=== PATIENT | male | born 1980 | race Caucasian/White ===

== ENCOUNTER 2016-09-28 08:18 | Emergency (ER) | payer BC ==
[~2016-09-28] VITALS: Ht 180.3 cm; Wt 63.6 kg
[~2016-09-28 08:18] MED LIST: CELEXA 20MG20 MG/TAB; CEPHALEXIN500 M1 PO; CIPRO500 MG PO; DOXYCYCLINE 10100 MG PO; FLEXERIL10 MG PO; FLOMAX 0.40.4 MG/CAP PO; LORTAB 5/500 501 TAB PO; NAPROSYN PO; NAPROSYN500 MG PO; NO HOME MEDICATIONS; NORCO 325 MG-51 TAB PO; PERCOCET 325 MG1 TA2 PO; PROMETHAZINE12.5 M5 PO; XANAX 1MG1 MG; ZOFRAN 4MG T4 MG/TAB PO
[2016-09-28 08:25] VITALS: BP 144/89; PULSE 105; TEMP 97.7
[2016-09-28] MEDS ORDERED: FLEXERIL 1010 MG/TAB PO (09:55)
[2016-09-28] MEDS ORDERED: NORCO 325 MG-51 TAB PO (09:55)
== END 2016-09-28 10:25 | disposition home or self-care (01) ==
LOC: COL.ER 08:18
DX: M54.31 Sciatica, right side (principal); F17.210 Nicotine dependence, cigarettes, uncomplicated
CPT/HCPCS: J1885; J2360

== ENCOUNTER 2017-09-07 08:43 | Emergency (ER) | payer BC ==
[~2017-09-07] VITALS: Ht 177.8 cm; Wt 63.6 kg
[~2017-09-07 08:43] MED LIST changes: +FLEXERIL 1010 MG/TAB PO
[2017-09-07 08:45] VITALS: BP 146/74; TEMP 97.1
[2017-09-07] MEDS ORDERED: ADVIL200 MG PO (08:57)
[2017-09-07] MEDS ORDERED: FLEXERIL 1010 MG/TAB PO (09:03)
[2017-09-07] MEDS ORDERED: PREDNISONE20 MG PO (10:08)
[2017-09-07 10:22] VITALS: PULSE 87
== END 2017-09-07 10:20 | disposition home or self-care (01) ==
LOC: COL.ER 08:43
DX: M54.17 Radiculopathy, lumbosacral region (principal); F17.210 Nicotine dependence, cigarettes, uncomplicated
CPT/HCPCS: J2360

== ENCOUNTER → 2017-10-25 | Outpatient (CLI) | payer BC ==
[~2017-10-25] MED LIST changes: +ADVIL200 MG PO; +PREDNISONE20 MG PO
== END ==
LOC: MHCPAIN 08:27
DX: G89.29 Other chronic pain (principal); M47.817 Spondylosis without myelopathy or radiculopathy, lumbosacral region; M54.16 Radiculopathy, lumbar region; M53.3 Sacrococcygeal disorders, not elsewhere classified
CPT/HCPCS: G0463

== ENCOUNTER 2018-06-05 09:54 | Emergency (ER) | payer BC ==
[~2018-06-05] VITALS: Ht 177.8 cm; Wt 56.4 kg
[2018-06-05 10:04] VITALS: BP 137/90; TEMP 98.5
[2018-06-05] MEDS ORDERED: INDOCIN50 MG PO (10:09)
[2018-06-05 10:39] LABS: BASO # 0.1 (0.0-0.2); BASO % 0.6 % (0.0-2.0); EOS # 0.1 (0.0-0.7); EOS % 0.7 % (0-4.0); GRAN # 4.8 (1.4-6.5); LYMPH # 2.9 (1.2-3.4); LYMPH % 34.9 % (20.0-51.0); MEAN CELL VOLUME 89 fl (80.0-100.0); MEAN CORPUSCULAR HEMOGLOBIN 32 pg (27.0-31.0); MEAN CORPUSCULAR HGB CONC 36 g/dl (33.0-37.0); MEAN PLATELET VOLUME 10.1 fl (7.4-10.4); MONO # 0.6 (0.1-0.6); MONO % 6.6 % (1.7-9.3); PLATELET COUNT 252 K/mm3 (130-400); REDCELL DISTRIBUTION WIDTH-CV 11.4 % (11.5-14.5)
[2018-06-05 10:45] LABS: ALBUMIN 4.6 gm/dL (3.5-5.0); BILIRUBIN,TOTAL 0.6 mg/dL (0.0-1.0); CALCIUM 9.9 mg/dL (8.4-10.2); CREATININE, serum 0.79 mg/dL (0.66-1.25); TOTAL PROTEIN 7.6 gm/dL (6.4-8.2)
[2018-06-05 10:53] LABS: COLLECTION METHOD CLEAN CATCH
[2018-06-05 11:04] LABS: MUCOUS Present /lpf; PH 6 (5-8); SQUAMOUS EPITHELIAL None Seen /hpf; URINE APPEARANCE Clear; URINE BACTERIA None Seen /hpf; URINE BILIRUBIN Negative (NEGATIVE); URINE BLOOD Negative (NEGATIVE); URINE COLOR Yellow; URINE GLUCOSE Negative (NEGATIVE); URINE KETONE Negative (NEGATIVE); URINE LEUKOCYTE ESTERASE Trace (NEGATIVE); URINE NITRATE Negative (NEGATIVE); URINE PROTEIN(semi-quant) Negative (NEGATIVE); URINE RBC 0-2 /hpf; URINE UROBILINOGEN Negative (NEGATIVE)
[2018-06-05] MEDS ORDERED: OMNICEF 300MG300 MG PO (13:09)
[2018-06-05 13:46] VITALS: PULSE 88
== END 2018-06-05 13:46 | disposition home or self-care (01) ==
LOC: COL.ER 09:54
PROVIDERS: Emergency Medicine
DX: N50.82 Scrotal pain (principal); F17.210 Nicotine dependence, cigarettes, uncomplicated
CPT/HCPCS: J0696; J1885

== ENCOUNTER → 2019-06-22 | Outpatient (CLI) | payer BC ==
[~2019-06-22] MED LIST changes: +INDOCIN50 MG PO; +OMNICEF 300MG300 MG PO
== END ==
LOC: COL.RAD 14:24
DX: M51.16 Intervertebral disc disorders with radiculopathy, lumbar region (principal); M47.26 Other spondylosis with radiculopathy, lumbar region